=== PATIENT | male | born 1965 | race Caucasian/White ===

== ENCOUNTER 2017-09-21 09:25 | Outpatient (CLI) | payer BC ==
[~2017-09-21 09:25] MED LIST: FENO48TA5 PO; LOSA1TAB23 PO; METO-387 PO
== END 2017-09-21 09:27 | disposition home or self-care (01) ==
LOC: SLEEP 09:25
PROVIDERS: ATTEND Nurse Practitioner Family
DX: G47.33 Obstructive sleep apnea (adult) (pediatric) (principal)

== ENCOUNTER 2017-10-23 21:10 | Outpatient (CLI) | payer BC | END 2017-10-24 06:48 | disposition home or self-care (01) | LOC: SLEEP 21:10 | PROVIDERS: ATTEND Otolaryngology Otolaryngology/Facial Plastic Surgery | DX: G47.33 Obstructive sleep apnea (adult) (pediatric) (principal); Z99.89 Dependence on other enabling machines and devices | CPT/HCPCS: 95811 ==

== ENCOUNTER 2018-06-21 11:40 | Outpatient (CLI) | payer BC ==
[~2018-06-21] VITALS: Ht 185.4 cm; Wt 112.9 kg
[~2018-06-21 11:40] MED LIST changes: +AMLO5TAB9 PO; +GEMF600T PO; +PANT40TA3 PO
== END 2018-06-21 12:14 | disposition home or self-care (01) ==
LOC: PREOP 11:40
PROVIDERS: ATTEND Surgery
DX: Z01.818 Encounter for other preprocedural examination (principal)

== ENCOUNTER 2018-06-28 13:29 | Day surgery (SDC) | payer BC ==
[~2018-06-28] VITALS: Ht 185.4 cm; Wt 112.9 kg
[2018-06-28] MEDS ORDERED: NS IV 500 ML 500 ML IV PRN (13:39)
[2018-06-28 13:40] VITALS: BP 141/88
[2018-06-28] MEDS ORDERED: NS IV 500 ML 500 ML ONE (13:42)
[2018-06-28] MEDS ORDERED: MIDAZOLAM 2 MG/2 ML (VERSED) VIAL IVP ONE (13:45)
[2018-06-28] MEDS ORDERED: fentaNYL INJECTION 100 MCG/2 ML AMP IVP ONE (13:45)
[2018-06-28] MEDS ORDERED: LIDOCAINE JELLY 2% 6 ML SYRINGE MM PRN (13:45)
[2018-06-28] MEDS ORDERED: HYDR25TA4 PO (14:17)
[2018-06-28] MEDS ORDERED: PARO-49 PO (14:17)
[2018-06-28] MEDS ORDERED: LOSA100T57 PO (14:17)
--- NOTE | 2018-06-28 14:36 | Progress Note-Pre Operative ---
Pre-Operative Progress Note H&P Reviewed The H&P was reviewed, patient examined and no changes noted. Date Seen by Provider: Jun 28, 2018 Time Seen by Provider: 14:00 Date H&P Reviewed: Jun 28, 2018 Time H&P Reviewed: 14:00 Pre-Operative Diagnosis: screening colonoscopy SHANNAN TAVERAS MD Jun 28, 2018 14:36
--- NOTE | 2018-06-28 14:36 | Conscious Sedation/ASA ---
Conscious Sedation Pre-Proced Time 14:00 ASA Score 2 For ASA 3 and 4: Consider anesthesia and medical clearance. Also, for patients with a history of failed moderate sedation consider anesthesia. Airway Lungs Heart ASA score ASA 1: a normal healthy patient ASA 2: a patient with a mild systemic disease (mid diabetes, controlled hypertension, obesity ASA 3: a patient with a severe systemic disease that limits activity (angina , COPD, prior Myocardial infarction) ASA 4: a patient with an incapacitating disease that is a constant threat to life (CHF, renal failure) ASA 5: a moribund patient not expected to survive 24 hrs. (ruptured aneurysm) ASA 6: a declared brain- patient whose organs are being harvested. For emergent operations, add the letter E after the classification Mallampati Classification Grade 2 Sedation Plan Analgesia, Amnesia, Plan communicated to team members, Discussed options with patient/fam, Discussed risks with patient/fam The patient is an appropriate candidate to undergo the planned procedure, sedation, and anesthesia. The patient immediately re-assessed prior to indication. SHANNAN TAVERAS MD Jun 28, 2018 14:36
--- NOTE | 2018-06-28 14:38 | Discharge Inst-Surgical ---
D/C Lap Instructions-NITIN Follow Up 10 years Activity as tolerated High Fiber Diet 25g or more per day Avoid Alcohol, Caffeine, Spicy [place] and Acid foods. Drink 64 fluid oz or more of fluids per day. Symptoms to Report: Fever over 101 degree F, Nausea/Vomiting If any problems/questions: Contact your physician or go to Emergency Room SHANNAN TAVERAS MD Jun 28, 2018 14:38
[2018-06-28] MEDS ORDERED: ONDANSETRON 4 MG/2 ML (SDV) Z0FRAN IV PRN (14:45)
[2018-06-28] MEDS ORDERED: ACETAMINOPHEN 325 MG TABLET PO PRN (14:45)
[2018-06-28] MEDS ORDERED: morphine INJ 10 MG/ML 1ML (SYR OR VIAL) IV PRN (14:45)
[2018-06-28] MEDS ORDERED: HYDROcodone/APAP 5 MG/325 MG (LORTAB) TAB PO PRN (14:45)
[2018-06-28] MEDS ORDERED: LIDOCAINE JELLY 2% 6 ML SYRINGE ONE (15:01)
[2018-06-28] MEDS ORDERED: fentaNYL INJECTION 100 MCG/2 ML AMP ONE ×2 (15:01→15:16)
[2018-06-28] MEDS ORDERED: MIDAZOLAM 2 MG/2 ML (VERSED) VIAL ONE ×5 (15:02→15:25)
[2018-06-28 16:00] VITALS: BP 124/74
[2018-06-28 16:20] VITALS: BP 132/80
[2018-06-28 16:27] VITALS: BP 132/80
--- NOTE | 2018-07-02 18:09 | OPERATIVE REPORT ---
DATE OF SERVICE: 06/28/2018 ATTENDING PRIMARY CARE PHYSICIAN: Dr. Christina. PREOPERATIVE DIAGNOSIS: Screening colonoscopy. POSTOPERATIVE DIAGNOSIS: Mild chronic stage I external and internal hemorrhoids. Remainder of the rectum and colon were normal. PROCEDURE: Colonoscopy. SURGEON: Shannan Webster MD ANESTHESIA: Conscious sedation. ESTIMATED BLOOD LOSS: Minimal. FINDINGS: Mild chronic stage I external and internal hemorrhoids, not actively edematous nor inflamed and no bleeding. Prostate gland was palpable and appeared normal. The remainder of the rectum and colon were normal. No polyps or any neoplasms identified. DISPOSITION: The patient tolerated the procedure well. INDICATIONS: The patient is a 52-year-old male in need of a screening colonoscopy. He has not had a colonoscopy up to this point in his life. He states that for the most part he is doing well, does not report any major issues with diarrhea, no constipation as well as no red blood per rectum nor any dark tarry stools. He does not have any first degree family history of colon cancer; however, he does recall a maternal uncle having the disease. DESCRIPTION OF PROCEDURE: The patient was brought to the endoscopy suite, laid in the left lateral decubitus position. After adequate IV pain and sedative medications and conscious sedation anesthesia, a digital rectal examination was performed. Mild chronic stage I external and internal hemorrhoids were identified, which were not actively edematous nor inflamed and no bleeding. Normal sphincter tone was felt and there were no palpable masses. Prostate gland was palpable and appeared normal. The endoscope was then intubated to the anus and rectum gently insufflated. The endoscope was then advanced to the valves of Rios in the rectum with no polyps or any neoplasms identified. We then proceeded through the sigmoid colon where no diverticulosis identified. The endoscope was then advanced to the remainder of the descending, transverse and ascending colon to the cecum. These segments were normal. There were no polyps or any neoplasms identified throughout the colon or rectum. The endoscope was then slowly withdrawn while taking a second look and suctioning of residual air with no additional findings. The patient tolerated the procedure well. We will recommend continued medical management with high fiber diet with at least 30 grams of fiber per day as well as significant amounts of water to promote soft stools on a daily basis. He does not need another colonoscopy for another 10 years; however, sooner if any problems arise. Job ID: [id number] DocumentID: [id number] Dictated Date: 07/02/2018 17:32:45 Lap Cutter Date: 07/02/2018 18:08:29 Dictated By: SHANNAN WEBSTER MD
== END 2018-06-28 16:28 | disposition home or self-care (01) ==
LOC: ENDO 13:29
PROVIDERS: ATTEND Surgery
DX: Z12.11 Encounter for screening for malignant neoplasm of colon (principal); K64.0 First degree hemorrhoids; Z80.0 Family history of malignant neoplasm of digestive organs; I10 Essential (primary) hypertension; E78.1 Pure hyperglyceridemia; G47.33 Obstructive sleep apnea (adult) (pediatric); K21.9 Gastro-esophageal reflux disease without esophagitis; Z79.899 Other long term (current) drug therapy

== ENCOUNTER → 2022-04-12 | Outpatient (CLI) | payer BC ==
[~2022-04-12] MED LIST changes: +AMLO-250 PO; -AMLO5TAB9 PO; +FENO48TA11 PO; -FENO48TA5 PO; +HYDR25TA4 PO; +LOSA100T57 PO; -METO-387 PO; +MTP25TSR PO; -PANT40TA3 PO; +PANT40TA52 PO; +PARO-124 PO
--- NOTE | 2022-04-12 09:43 | Diagnostic Imaging Report ---
PROCEDURE: US carotid duplex, bilateral. TECHNIQUE: Multiple real-time grayscale images were obtained over the carotid arteries in various projections, bilaterally. Additional spectral analysis and color Doppler duplex images were also obtained. INDICATION: Hypertension. Evaluate for carotid stenosis. COMPARISON: None. FINDINGS: Right carotid circulation: The right common carotid artery is normal in course and caliber. Minimal atherosclerotic plaque is seen in the right carotid system. No hemodynamically significant stenosis is present. Left carotid circulation: The left common carotid artery is normal in course and caliber. Minimal atherosclerotic plaque is seen in the left carotid system. No hemodynamically significant stenosis is present. Flow in the bilateral vertebral arteries is antegrade. IMPRESSION: 1. Minimal atherosclerosis involving the bilateral carotid systems. 2. No sonographic evidence of hemodynamically significant stenosis based on flow velocity criteria. Parameters based on the consensus panel Sr-Scale and Doppler ultrasound criteria published January 2003, Radiology, Volume 229. DOPPLER (peak systolic velocity M/S Right Left CCA 1.26 1.38 ICA Proximal .79 1.38 ICA Mid .89 .89 ICA Distal .82 .89 RATIO .71 1.00 ECA 1.07 1.30 VERT .56 .36 Dictated by: Dictated on workstation # [id number]
== END ==
LOC: RAD 08:34
PROVIDERS: ATTEND Internal Medicine
DX: I65.23 Occlusion and stenosis of bilateral carotid arteries (principal)
CPT/HCPCS: 93880